=== PATIENT | female | born 1995 | race Caucasian/White ===

== ENCOUNTER 2018-11-21 22:22 | Emergency (ER) | payer MEDICAID ==
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
[2018-11-21] MEDS ORDERED: ACETAMINOPHEN 500 MG TAB ONE (23:11)
[2018-11-21] MEDS ORDERED: ACETAMINOPHEN 500 MG TAB PO ONE (23:12)
[2018-11-21 23:44] VITALS: BP 125/75
== END 2018-11-21 23:43 | disposition home or self-care (01) ==
LOC: EDUNIT#
DX: S10.93XA Contusion of unspecified part of neck, initial encounter (principal); S20.229A Contusion of unspecified back wall of thorax, initial encounter; S00.83XA Contusion of other part of head, initial encounter; Y04.0XXA Assault by unarmed brawl or fight, initial encounter; F31.9 Bipolar disorder, unspecified; F98.8 Other specified behavioral and emotional disorders with onset usually occurring in childhood and adolescence